=== PATIENT | female | born 1990 | race Caucasian/White ===

== ENCOUNTER → 2018-07-18 | Outpatient (CLI) | payer BC, OTHER ==
--- NOTE | 2018-07-20 12:22 | US ---
EXAM: Thyroid CLINICAL HISTORY: GOITER COMPARISON STUDY: None TECHNICAL: Ultrasound and color flow evaluation of the thyroid FINDINGS: The thyroid gland has a homogeneous appearance with no mass or cystic lesion. The right lobe of the thyroid is 5.7 x 2 x 1.4 cm and the left lobe 4.6 x 1.5 x 1.5 cm. The isthmus is 1.1 mm. On the images, there is an area of slight heterogeneity measured that is not true nodule. IMPRESSION: Normal thyroid ultrasound. Electronically signed by: Danis Grier MD 07/20/2018 12:19 PM CDT
== END ==
LOC: US 08:36
PROVIDERS: ATTEND Nurse Practitioner Family
DX: E04.9 Nontoxic goiter, unspecified (principal)